=== PATIENT | female | born 1980 | race Caucasian/White ===

== ENCOUNTER 2020-04-23 10:11 | Outpatient (REF) | payer OTHER, SELFPAY ==
--- NOTE | ~2020-04-23 | MR_ITS ---
MRI OF THE BRAIN WITHOUT IV CONTRAST INDICATION: Headache. COMPARISON: None available. TECHNIQUE: Multiplanar multisequence MR imaging of the brain was obtained without IV contrast. FINDINGS: There is no hydrocephalus, extra-axial surface collection, or herniation. No parenchymal signal abnormality. The major flow voids at the skull base are preserved. There is no acute infarct on diffusion-weighted imaging. There is no intracranial hemorrhage on the gradient recalled echo acquisition. The midline structures are normal. The cerebellar tonsils are normally positioned. The cerebellum and brainstem are normal. The craniocervical junction is normal. Osseous marrow signal intensity is homogenous. The visualized soft tissues are unremarkable. MR/MR head/brain wo con IMPRESSION: Unremarkable noncontrast MRI of the brain.
== END 2020-04-23 10:12 | disposition home or self-care (01) ==
LOC: HO.MRI 10:11
PROVIDERS: PCP Nurse Practitioner Family; Visit Provider Nurse Practitioner Family
DX: R51.9 Headache, unspecified (principal)
CPT/HCPCS: 70551

== ENCOUNTER 2022-11-23 13:54 | Outpatient (AMB) | payer OTHER, SELFPAY ==
--- NOTE | 2022-11-23 14:06 | A.OFFPC_ITS ---
Vital Signs 11/23/22 14:10 Height 5 ft 8 in Weight 208 lb BMI 31.6 BP 132/90 H Blood Pressure Location Lt brachial Position Sitting Pulse 90 Pulse Source Pulse Oximeter Pulse Oximetry (%) 98 Oxygen Delivery Method Room Air Intake Visit Reasons: Medications and mammo request Allergies penicillin G Allergy (Unknown, Verified 11/23/22 14:11) rash as infant Erythromycin Allergy (Unknown, Uncoded 11/23/22 14:11) hives as infant Medication List - Last Reconciled 11/23/22 by MARLENY Jarvis-ABDIFATAH citalopram 20 mg PO DAILY 90 days Tobacco use date assessed: 11/23/22 HPI Medications and mammo request HPI Details Pt is here for a PE. Will order labs. Due for mammo, will order. 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 Pt's blood pressure is elevated. Will have pt monitor her blood pressure at home and drop off values. Denies chest pain, shortness of breath, headache, dizziness, and blurred vision. Citalopram is working well for her anxiety. 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 Current occupational exposures/hazards: No Cognitive needs: No Hearing needs: No Vision needs: No Review of Systems Const Denies chills and Denies fever(s) Eyes Denies blurry vision ENT Denies vertigo, Denies dizziness and Denies sore throat Card Denies chest pain at rest, Denies chest pain with activity, Denies diaphoresis, Denies dyspnea and Denies dyspnea on exertion Resp Denies cough, Denies dyspnea, Denies dyspnea on exertion and Denies wheezing GI Denies abdominal pain, Denies melena, Denies hematochezia, Denies constipation, Denies diarrhea and Denies loose stools Denies hematuria Musc Denies numbness and Denies tingling Skin/Breast Denies lesions Neuro Denies vertigo, Denies dizziness, Denies numbness and Denies tingling Psych Denies anxiety, Denies depression, Denies homicidal ideation, Denies suicidal ideation and Denies other (substance abuse) Aller/Immun Denies wheezing Physical exam (Primary Care) Vital Signs: Last Vital Signs Pulse 90 11/23/22 14:10 BP 132/90 H 11/23/22 14:10 Pulse Ox 98 11/23/22 14:10 Oxygen Delivery Method Room Air 11/23/22 14:10 BMI result Body Mass Index 31.6 Tobacco/Smoking Status: Tobacco use Status Tobacco use date assessed 11/23/22 11/23/22 14:17 Patient Tobacco Use Status Never used Tobacco 11/23/22 14:17 e-Cigarette/Vaping Use Never Used 11/23/22 14:17 Const General: cooperative Nutritional Appearance: obese Orientation/consciousness: patient oriented x3 HENMT Head: Yes normal to inspection, Yes normocephalic and Yes atraumatic Ears: TM's normal bilaterally Eyes General: appearance normal, both eyes and all related structures Alignment and Position: alignment normal and position normal Neck Neck: Yes normal visual inspection and Yes no lymphadenopathy Thyroid: Thyroid normal Resp Effort & Inspection: normal respiratory effort Auscultation: clear to auscultation bilaterally Cardio Rate: regular rate Rhythm: regular rhythm Heart sounds: S1 normal heart sound present, S2 normal heart sound present and no murmurs GI Palpation (GI): Soft to palpation and nontender Auscultation: normal bowel sounds Skin Rashes: no rashes Neuro General: patient oriented x3, moves all extremities, no focal motor deficits and deep tendon reflexes 2+ bilaterally Romberg Test: Negative Psych Appearance: grossly normal Mental Status: mental status grossly normal Speech and movement: Normal speech and movement present Affect: normal affect Attitude: cooperative Thought process: Normal thought process present Thought content: Normal thought content present Insight: Good insight present (Psych) Judgement: Good judgement present (Psych) Assessment and Plan Assessment & Plan (1) Physical exam: Code(s): Z00.00 - Encounter for general adult medical examination without abnormal findings Plan: Labs ordered (2) HTN (hypertension): Code(s): I10 - Essential (primary) hypertension (3) Family history of pancreatic cancer: Code(s): Z80.0 - Family history of malignant neoplasm of digestive organs Plan The patient agreed to the use of a medical practitioners for this encounter. Scribed for LAURA Walton by jessica Mcghee scribe, on 11/23/2022 at 14:20 EST. Orders: Orders UA CC w/rflx Micro + Cult Today Z00.00 - Encounter for general adult medical examination without abnormal findings MM screening mammo BI Today Z12.31 - Encounter for screening mammogram for malignant neoplasm of breast Carbohydrate Antigen 19-9 Today Z80.0 - Family history of malignant neoplasm of digestive organs Complete Blood Count Auto Diff Today Z00.00 - Encounter for general adult medical examination without abnormal findings Comprehensive [place]. Panel Fast Today Z00.00 - Encounter for general adult medical examination without abnormal findings TSH reflex Free T4 Today Z00.00 - Encounter for general adult medical examination without abnormal findings Lipid Panel Today Z00.00 - Encounter for general adult medical examination without abnormal findings Medications: Refilled citalopram 20 mg PO DAILY 90 tabs 1RF 90 days Coding Level of Care Code Est Pt Prev Care 40-64y(92927) Diagnoses Physical exam Z00.00 HTN (hypertension) I10 Family history of pancreatic cancer Z80.0
[2022-11-23 14:10] VITALS: BP 132/90; PULSE 90; O2SAT 98; BMI 31.6
== END 2022-11-23 14:49 | disposition home or self-care (01) ==
PROVIDERS: PCP Nurse Practitioner Family; Visit Provider Nurse Practitioner Family
DX: Z00.00 Encounter for general adult medical examination without abnormal findings (principal); I10 Essential (primary) hypertension; Z80.0 Family history of malignant neoplasm of digestive organs
CPT/HCPCS: 99396

== ENCOUNTER 2024-08-15 07:06 | Outpatient (AMB) | payer OTHER, SELFPAY ==
--- NOTE | 2024-08-15 08:08 | MHC.PC.OV ---
Intake Visit Reasons: Discuss FMLA, depression/anxiety iPhone Allergies penicillin G Allergy (Unknown, Verified 11/23/22 14:11) rash as Erythromycin Allergy (Unknown, Uncoded 11/23/22 14:11) hives as Tobacco use date assessed: 11/23/22 HPI Discuss FMLA, depression/anxiety iPhone HPI Details History of Present Illness The patient is a 44-year-old female presenting with exacerbated anxiety attributed to work-related stressors. The current therapeutic regimen includes sessions with a therapist, although her anxiety has worsened to near panic attacks. Her emotional distress started after events at her workplace and has led to episodes of crying. Her anxiety has escalated to a level that necessitates a temporary leave from work for further management. Despite the increasing symptoms, she remains proactive in accessing mental health resources and confirms no suicidal or homicidal thoughts. Review of Systems - Psychiatric: Reports increased anxiety and tearfulness; denies suicidal and homicidal ideation. Plan The patient is advised to take a temporary leave from work to focus on managing her anxiety disorder. She will seek support from the Employee Assistance Program (EAP) and continue attending therapy sessions. Her condition will be monitored closely, with the use of crisis lines if necessary, and ongoing communication through the portal for any further concerns or support. Discussion Notes During our discussion, I advised the patient on managing her exacerbated anxiety through a temporary leave of absence from her work environment, which has been a significant stressor. We agreed on reaching out to the Employee Assistance Program (EAP) as an additional resource. The patient understands the importance of continuous therapeutic support and agreed to maintain her current therapy regimen. We discussed the availability of crisis lines for emergencies, and she confirmed her understanding and awareness of these resources. She was advised to use the communication portal for further discussion or help if required. We also addressed the potential for fragile mental health status and the necessity for vigilant monitoring during this leave period. The patient expressed understanding and agreement with this comprehensive approach to manage her anxiety symptoms. Patient Instructions - Stay out of work temporarily to focus on managing anxiety. - Contact the Employee Assistance Program (EAP) for additional support. - Continue attending therapy sessions regularly. - Use crisis lines for urgent mental health support. - Reach out through the portal for any further concerns or questions. - Prioritize self-care and wellbeing while on leave. 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 Current occupational exposures/hazards: No Cognitive needs: No Hearing needs: No Vision needs: No Physical exam (Primary Care) Tobacco/Smoking Status: Tobacco use Status Tobacco use date assessed 11/23/22 11/23/22 14:17 Patient Tobacco Use Status Never used Tobacco 11/23/22 14:17 e-Cigarette/Vaping Use Never Used 11/23/22 14:17 Telehealth Telehealth Telehealth Platform[facility] [employer] Location of provider rendering services: practice address Location of patient: address on file Patient Identification confirmed using: Name, : Yes Telehealth method: video Patient verbally consented to treatment: Yes Patient verbally consented to billing insurance company: Yes Patient informed of any privacy concerns related to visit: Yes Minutes spent on Phone/Video with Pt.: 15 Coding Level of Care Code Tele Est Pt Level 3 (77783) Diagnoses Anxiety F41.9 Assessment & Plan Assessment & Plan (1) Anxiety: Code(s): F41.9 - Anxiety disorder, unspecified Category: Medical Plan .
== END 2024-08-15 08:15 | disposition home or self-care (01) ==
LOC: HO.HMCC 07:06
PROVIDERS: PCP Nurse Practitioner Family; Visit Provider Nurse Practitioner Family
DX: F41.9 Anxiety disorder, unspecified (principal)

== ENCOUNTER → 2024-08-15 07:06 | Outpatient (BNVA) | payer OTHER, SELFPAY | PROVIDERS: PCP Nurse Practitioner Family; Visit Provider Nurse Practitioner Family ==

== ENCOUNTER 2024-09-19 13:58 | Outpatient (AMB) | payer OTHER, SELFPAY ==
[2024-09-19 14:06] VITALS: BP 124/82; PULSE 89; RESP 16; O2SAT 99; BMI 30.7
--- NOTE | 2024-09-19 14:06 | A.OFFPC_ITS ---
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 Accompanied by: Self / Same As Patient Allergies penicillin G Allergy (Unknown, Verified 09/19/24 15:35) rash as infant Erythromycin Allergy (Unknown, Uncoded 09/19/24 15:35) hives as Medication List - Last Reconciled 09/19/24 by MARLENY Jarvis- citalopram 20 mg PO DAILY 90 days Tobacco use date assessed: 09/19/24 Dental Screening Dental Screen Date: 09/19/24 Did you have a dental visit in the last 12 months?: Yes Did you have a dental problem in the last 6 months where you did not have access to dental care?: No Was dental information given to patient?: Patient has dentist HPI Annual PE HPI Details History of Present Illness The patient is a 44-year-old female presenting for a physical exam and management of stress and anxiety. She has been experiencing severe stress and anxiety related to work, which has led her to seek therapy weekly. The patient is currently on Citalopram 20 mg and denies any suicidal or homicidal ideation. She is also dealing with depression, characterized by moodiness and irritability, and is breaking down childhood issues contributing to her current state. Additionally, she exhibits symptoms of obsessive-compulsive disorder (OCD). A psychiatrist consultation via telehealth is planned to address these mental health concerns. The patient denies experiencing any fevers, chills, nausea, vomiting, chest pain, dyspnea, abdominal pain, hematochezia, constipation, or diarrhea. She is encouraged to complete fasting labs soon and has plans to schedule a mammogram at [facility]. 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 Health Maintenance - Mammogram scheduled at [facility] - Fasting labs recommended Social History Review of Systems - General: Denies fevers, chills - Gastrointestinal: Denies nausea, vomit ing, abdominal pain, hematochezia, constipation, diarrhea - Cardiovascular: Denies chest pain - Respiratory: Denies dyspnea denies any si or hi Physical Exam General: Cooperative, healthy appearing, comfortable, no acute distress and well developed Orientation: Patient oriented x3 Limitations: No limitations Head: Normal to inspection Ears: Hearing grossly normal bilaterally Nose: Normal external nose present Face and sinus: Normal facial exam Eyes: Appearance normal, both eyes and all related structures Neck: Normal visual inspection and Yes full ROM Respiratory: Normal respiratory effort and able to speak in complete sentences. Clear to auscultation bilaterally Cardiovascular: Regular rate and rhythm. Normal S1 and S2 GI: Normal to inspection. Soft to palpation and nontender Skin: No rashes or lesions noted Neuro: Patient oriented x3 Extremities: Normal to inspection Results Plan The patient will continue her current medication, Citalopram 20 mg, and maintain weekly therapy sessions to manage her stress and anxiety. A referral to a psychiatrist for telehealth consultation has been arranged to further address her depression/anxiety and OCD symptoms. She is advised to complete fasting labs in the near future and to schedule a mammogram at [facility] as part of her preventative care. 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 - Attend weekly therapy sessions. - Schedule a telehealth appointment with a psychiatrist. - Complete fasting labs soon. - Schedule a mammogram at [facility] . [facility] Medical History Family history of pancreatic cancer Surgical History No pertinent past surgical history Family History Mother Mental health problem Father No problems noted. 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 1. Little interest or pleasure in doing things: several days 2. Feeling down, depressed, or hopeless: several days 3. Trouble falling or staying asleep, or sleeping too much: several days 4. Feeling tired or having little energy: several days 5. Poor appetite or overeating: several days 6. Feeling bad about yourself - or that you are a failure or have let yourself or your family down: several days 7. Trouble concentrating on things, such as reading the newspaper or watching television: several days 8. Moving or speaking so slowly that other people could have noticed. Or the opposite - being so fidgety or restless that you have been moving around a lot more than usual: not at all 9. Thoughts that you would be better off or of hurting yourself in some way: not at all Total score: 7 Depression Screening Interpretation: Negative Depression Screening Done: Yes 26655 - PHQ-9 Billing: Yes Source: Developed by Drs. Lebron Aguilar, Angie Cade, Brett Arevalo and colleagues, with an educational ella from [facility]. Thrive Questionnaire Date Thrive assessed: 09/19/24 I am a: Patient What is your living situation today?: I have a steady place to live Within the past 12 months, did the food you bought not last and you didn't have the money to get more?: Never true Within the past 12 months, did you worry whether your food would run out before you got money to buy more?: Never true Do you have trouble paying for medicines?: No Do you have trouble getting transportation to medical appointments?: No Do you have trouble paying your heating and electricity bill?: No Do you have trouble taking care of your child, family member or friend?: No Do you have trouble with day-to-day activities such as bathing, preparing meals, shopping, managing finances, etc.?: No Are you currently unemployed and looking for a job?: No Are you interested in more education?: No Please select the resources that you would like help with: None Currently or been in a relationship where the following occur: No concerns reported THRIVE Score: 0 AUDIT C Alcohol Use Questionnaire (AUDIT-C) 1. How often do you have a drink containing alcohol?: 2-4 times a month 2. How many drinks containing alcohol do you have on a typical day when you are drinking?: 1 or 2 3. How often do you have six or more drinks on one occasion?: Never Total Score: 2 Score Reviewed/Action Taken: Yes JACK-7 AMB Questionnaire JACK-7 Date JACK - 7 assessed: 09/19/24 Feeling nervous, anxious, or on edge: 3 = Nearly every day Not being able to stop or control worryin = Nearly every day Worrying too much about different things: 3 = Nearly every day Trouble relaxin = More than half the days Being so restless that it is hard to sit still: 0 = Not at all Becoming easily annoyed or irritable: 3 = Nearly every day Feeling afraid as if something awful might happen: 1 = Several days Total JACK-7 score (0-4 normal; 5-9 mild; 10-14 moderate; 15-21 severe): 15 Source: Developed by Drs. Lebron Aguilar, Angie Cade, Brett Arevalo and colleagues, with an educational ella from [facility]. JACK-7 Assessment Billing JACK-7 Assessment Tool: JACK-7 Assessment 25581 (has a therapist, denies any si or hi) Physical exam (Primary Care) Vital Signs: Last Vital Signs Pulse 89 09/19/24 14:06 Resp 16 09/19/24 14:06 BP 124/82 09/19/24 14:06 Pulse Ox 99 09/19/24 14:06 Oxygen Delivery Method Room Air 09/19/24 14:06 BMI result Body Mass Index 30.7 Tobacco/Smoking Status: Tobacco use Status Tobacco use date assessed 09/19/24 09/19/24 14:12 Patient Tobacco Use Status Never used Tobacco 09/19/24 14:12 e-Cigarette/Vaping Use Never Used 09/19/24 14:12 PHQ-9: PHQ-9 Score PHQ-9: Total score 7 09/19/24 14:32 Depression Screening Interpretation: Negative Thrive Assessment: Date of Thrive Assessment Date Thrive assessed 09/19/24 09/19/24 14:12 Currently or been in a relationship where the following occur: No concerns reported Coding Level of Care Code Est Pt Level 3 (34910) Est Pt Prev Care 40-64y(46498) Diagnoses Encounter for routine adult physical exam with abnormal findings Z00.01 Anxiety F41.9 Depression F32.A Additional Codes PHQ-9 - 43715 - PHQ-9 Billing: Yes ([id number]) JACK-7 Assessment Billing - JACK-7 Assessment Tool: JACK-7 Assessment 99209 ([id number]) Assessment & Plan Assessment & Plan (1) Encounter for routine adult physical exam with abnormal findings: Code(s): Z00.01 - Encounter for general adult medical examination with abnormal findings Category: Medical (2) Anxiety: Code(s): F41.9 - Anxiety disorder, unspecified Category: Medical (3) Depression: Code(s): F32.A - Depression, unspecified Category: Medical Plan . Orders: Orders Complete Blood Count Auto Diff Today Z00. - Encounter for general adult medical examination with abnormal findings TSH reflex Free T4 Today Z00.01 - Encounter for general adult medical examination with abnormal findings UA CC w/rflx Micro + Cult Today Z00.01 - Encounter for general adult medical examination with abnormal findings Comprehensive [place]. Panel Fast Today Z00.01 - Encounter for general adult medical examination with abnormal findings Lipid Panel Today Z00.01 - Encounter for general adult medical examination with abnormal findings
== END 2024-09-19 16:23 | disposition home or self-care (01) ==
LOC: HO.HMCC 13:59
PROVIDERS: PCP Nurse Practitioner Family; Visit Provider Nurse Practitioner Family
DX: Z00.01 Encounter for general adult medical examination with abnormal findings (principal); F41.9 Anxiety disorder, unspecified; F32.A Depression, unspecified

== ENCOUNTER → 2024-09-19 13:58 | Outpatient (BNVA) | payer OTHER, SELFPAY | PROVIDERS: PCP Nurse Practitioner Family; Visit Provider Nurse Practitioner Family | DX: Z00.01 Encounter for general adult medical examination with abnormal findings (principal); F41.9 Anxiety disorder, unspecified; F32.A Depression, unspecified; Z13.31 Encounter for screening for depression; Z13.30 Encounter for screening examination for mental health and behavioral disorders, unspecified | CPT/HCPCS: 96127 ==

== ENCOUNTER 2024-09-20 09:55 | Outpatient (REF) | payer OTHER, SELFPAY ==
[2024-09-20 11:31] LABS: MANUAL DIFF FLAG NO
[2024-09-20 11:47] LABS: Appearance Urine Cloudy; Glucose Urine UA Negative (Negative); PH 6.5 (5.0-9.0); Specific Gravity - Urine 1.020 (1.005-1.025); UMIC TRIGGER UACC YES
[2024-09-20 11:56] LABS: Hematocrit 38.6 % (37.0-47.0); Hemoglobin 12.8 g/dl (12.0-16.0); Imm Gran Abs Auto 0.02 X10*3/uL (0.00-0.03); Imm Gran Pct Auto 0.4 % (0.0-0.4); Lymphocytes Absolute Auto 1.6 X10*3/uL (1.2-4.9); Mean Corpuscular HGB Conc 33.2 g/dl (31.0-35.0); Mean Corpuscular Hemoglobin 30.2 pg (27.0-33.0); Mean Corpuscular Volume 91.0 fL (80.0-98.0); NRBC Abs Auto 0.000 X10*3/uL (0.0-0.012); NRBC Pct Auto 0.0 /100WBC (0.0-0.2); Platelet Count 245 X10*3/uL (160-400); Red Blood Count 4.24 X10*6/uL (4.20-5.50); White Blood Count 4.7 X10*3/uL (4.8-10.8)
[2024-09-20 12:04] LABS: UACC Culture Trigger YES
[2024-09-20 12:25] LABS: Alanine Aminotransferase 15 U/L (0-31); Albumin Level 4.3 g/dL (3.5-5.0); Alkaline Phosphatase 61 U/L (39-117); Anion Gap 9 (12-20); Aspartate Amino Transferase 20 U/L (5-31); Blood Urea Nitrogen 13 mg/dL (9-16); Calcium 9.1 mg/dL (8.4-10.2); Carbon Dioxide 25 mmol/L (22-29); Chloride 107 mmol/L (96-108); Cholesterol 164 mg/dL (<200); Estimated Glomerular Filt Rate > 60; HDL Cholesterol 52 mg/dL (>40); Potassium 4.2 mmol/L (3.3-5.1); Sodium 137 mmol/L (135-145); Total Protein 6.9 g/dL (6.5-8.0); Triglycerides 54 mg/dL (<150)
== END 2024-09-20 09:56 | disposition home or self-care (01) ==
LOC: HO.WFDLDS 09:55
PROVIDERS: Visit Provider Nurse Practitioner Family
DX: Z00.01 Encounter for general adult medical examination with abnormal findings (principal)
CPT/HCPCS: 36415; 80053; 80061; 81001; 84443; 85025; 87086

== ENCOUNTER 2024-10-17 06:51 | Outpatient (AMB) | payer OTHER, SELFPAY ==
--- NOTE | 2024-10-17 07:12 | MHC.PC.OV ---
Intake Visit Reasons: 2m follow up Allergies penicillin G Allergy (Unknown, Verified 09/19/24 15:35) rash as infant Erythromycin Allergy (Unknown, Uncoded 09/19/24 15:35) hives as infant Medication List - Last Reconciled 10/17/24 by LAURA Jarvis citalopram 20 mg PO DAILY 90 days Tobacco use date assessed: 09/19/24 Dental Screening Dental Screen Date: 09/19/24 HPI 2m follow up HPI Details History of Present Illness The patient is a 44-year-old female presenting with ongoing depression and anxiety. She reports significant improvement in her symptoms, attributing this to her regular therapy sessions, which occur twice a week. The patient denies any suicidal or homicidal ideation, indicating a positive response to her current treatment regimen. The patient has been under the care of a therapist whom she finds very effective, contributing to her overall well-being. She is scheduled to return to work on the 02 of November, reflecting her progress and readiness to resume normal activities. Review of Systems - Psychiatric: Reports improvement in depression and anxiety. Denies suicidal or homicidal ideation. Plan The patient will continue her therapy sessions twice a week, as they have been beneficial in managing her depression and anxiety. She is cleared to return to work on November 02, and I will complete the necessary paperwork to facilitate this transition. Discussion Notes I discussed with the patient the importance of continuing her therapy sessions, which have been instrumental in her improvement. We also talked about her return to work on November 02, ensuring she feels ready and supported for this step. Patient Instructions - Continue attending therapy sessions twice a week. - Prepare for return to work on November 02. [facility] Medical History Family history of pancreatic cancer Surgical History No pertinent past surgical history Family History Mother Mental health problem Father No problems noted. 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 Current occupational exposures/hazards: No Cognitive needs: No Hearing needs: No Vision needs: No Questionnaire Thrive Questionnaire Date Thrive assessed: 09/19/24 I am a: Patient What is your living situation today?: I have a steady place to live Within the past 12 months, did the food you bought not last and you didn't have the money to get more?: Never true Within the past 12 months, did you worry whether your food would run out before you got money to buy more?: Never true Do you have trouble paying for medicines?: No Do you have trouble getting transportation to medical appointments?: No Do you have trouble paying your heating and electricity bill?: No Do you have trouble taking care of your child, family member or friend?: No Do you have trouble with day-to-day activities such as bathing, preparing meals, shopping, managing finances, etc.?: No Are you currently unemployed and looking for a job?: No Are you interested in more education?: No Please select the resources that you would like help with: None Currently or been in a relationship where the following occur: No concerns reported THRIVE Score: 0 JACK-7 AMB Questionnaire JACK-7 Date JACK - 7 assessed: 09/19/24 Source: Developed by Drs. Lebron Aguilar, Angie Cade, Brett Arevalo and colleagues, with an educational ella from [employer]. Physical exam (Primary Care) Tobacco/Smoking Status: Tobacco use Status Tobacco use date assessed 09/19/24 09/19/24 14:12 Patient Tobacco Use Status Never used Tobacco 09/19/24 14:12 e-Cigarette/Vaping Use Never Used 09/19/24 14:12 Thrive Assessment: Date of Thrive Assessment Date Thrive assessed 09/19/24 10/12/24 21:18 Currently or been in a relationship where the following occur: No concerns reported Telehealth Telehealth [facility] Location of provider rendering services: practice address Location of patient: address on file Patient Identification confirmed using: Name, : Yes Telehealth method: video Patient verbally consented to treatment: Yes Patient verbally consented to billing insurance company: Yes Patient informed of any privacy concerns related to visit: Yes Minutes spent on Phone/Video with Pt.: 13 Coding Level of Care Code Tele Est Pt Level 3 (84341) Diagnoses Depression F32.A Anxiety F41.9 Assessment & Plan Assessment & Plan (1) Depression: Code(s): F32.A - Depression, unspecified Category: Medical (2) Anxiety: Code(s): F41.9 - Anxiety disorder, unspecified Category: Medical Plan .
== END 2024-10-17 07:22 | disposition home or self-care (01) ==
LOC: HO.HMCC 06:52
PROVIDERS: PCP Nurse Practitioner Family; Visit Provider Nurse Practitioner Family
DX: F32.A Depression, unspecified (principal); F41.9 Anxiety disorder, unspecified